=== PATIENT | male | born 1945 | race Caucasian/White ===

== ENCOUNTER 2020-04-07 15:40 | Inpatient (IN) | payer MEDICARE, OTHER ==
[~2020-04-07] VITALS: Ht 172.7 cm; Wt 102.1 kg
--- OUTSIDE RECORDS SUMMARY | 2020-04-07 15:43 | XMS REPORT | Clinical Summary ---
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 Active mv-mn/folic Take by 0 acid/lutein/jeq491 (JAVIER mouth. MULTIVITAMIN FOR MEN ORAL) Active KRILL UXY-LEEUS-4-DHA-EPA Take by 0 ORAL mouth. Active Problems Problem Noted Date Follow-up examination after orthopedic surgery 05/17 S/P right knee arthroscopy 05/17/2018 Complex tear of medial meniscus of right knee as curr ent injury 04/13/2018 Chronic pain of right knee 04/06/2018 Primary osteoarthritis of right knee 04/06/2018 Obesity (BMI 34.67) 04/06/2018 Family History Medical History Relation Name Comments Diabetes Father Heart disease Father Heart disease Mother Hypertension Mother Relation Name Status Comments Father Mother Social History Date Tobacco Use Types Packs/Day Years Used Never Smoker Smokeless Tobacco: Snuff Current User Drinks/Week oz/Week Comments Alcohol Use 21 Cans of beer 21.0 Yes Sex Assigned at Date Recorded Not on file Industry Job Start Date Occupation Not on file Not on file Not on file Travel End Travel History Travel Start No recent travel history available. 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
[2020-04-07] MEDS ORDERED: SODIUM CHLORIDE 0.9% 250ML 250 ML IV NR ×2 (16:15→20:45)
[2020-04-07 16:29] VITALS: BP 149/77
[2020-04-07 16:35] VITALS: BP 149/77
[2020-04-07 16:39] LABS: BASOPHILS % 0.3 % (0.0-1.0); EOSINOPHILS % 0.1 % (0.0-6.0); HEMATOCRIT 26.9 % (38.2-49.6); HEMOGLOBIN 7.4 g/dL (14.0-18.0); LYMPHOCYTES # (AUTO) 1.4 (1.0-3.2); LYMPHOCYTES % 16.3 % (18.0-39.1); MEAN CORPUSCULAR HEMOGLOBIN 19.5 pg (28-32); MEAN CORPUSCULAR HGB CONC 27.5 g/dL (31-35); MONOCYTES # (AUTO) 0.8 (0.2-0.8); MONOCYTES % 9.4 % (4.4-11.3); NEUTROPHILS # (AUTO) 6.3 (2.1-6.9); NEUTROPHILS % 73.4 % (38.7-80.0); PLATELET COUNT 279 x10e3/uL (140-360); RED BLOOD COUNT 3.79 x10e6/uL (4.3-5.7); RED CELL DISTRIBUTION WIDTH 20.4 % (11.7-14.4)
[2020-04-07 16:44] VITALS: BP 149/77
[2020-04-07] MEDS ORDERED: FLOMAX0.4 MG PO (16:49)
[2020-04-07] MEDS ORDERED: folic acid PO (16:49)
[2020-04-07] MEDS ORDERED: PRILOSEC OTC20 MG PO (16:49)
[2020-04-07] MEDS ORDERED: FERROUS SULFAT325 MG PO (16:49)
--- NOTE | 2020-04-07 16:49 | NUR ---
patient received direct admit ambulatory. all labs ordered and patient typed and screened. Dr Caceres and Dr Ro notified of admission. vitals stable with no distress. Dr Caceres will see patient this evening.
[2020-04-07 16:51] LABS: INR 0.96; PROTHROMBIN TIME 13.4 seconds (11.9-14.5)
[2020-04-07 17:00] LABS: ALBUMIN 3.8 g/dL (3.5-5.0); ALBUMIN/GLOBULIN RATIO 1.3 (0.8-2.0); CALCIUM 9.3 mg/dL (8.4-10.2); CREATININE, SERUM 1.37 mg/dL (0.72-1.25)
[2020-04-07] MEDS ORDERED: PANTOPRAZOLE 40 MG 10ML VIAL IV SCH (17:00)
--- NOTE | 2020-04-07 17:03 | Diagnostic Imaging Report ---
Examination: Single AP view of the chest. COMPARISON: None. INDICATION: GI bleed DISCUSSION: Lines/tubes: None. Lungs: The lungs are well inflated and clear. No pneumonia or pulmonary edema. Pleura: No pleural effusion or pneumothorax. Heart and mediastinum: Cardiomegaly Bones and soft tissues: No acute bony abnormalities. IMPRESSION: 1. No acute cardiopulmonary abnormalities. Signed by: Dr. Mark Fermin M.D. on 04/07/2020 5:00 PM
[2020-04-07] MEDS ORDERED: ACETAMINOPHEN 325 MG TAB PO PRN (19:30)
[2020-04-07] MEDS ORDERED: DOCUSATE SODIUM 100 MG CAP PO PRN (19:30)
[2020-04-07] MEDS ORDERED: ONDANSETRON HCL INJ 2MG/ML 2ML 2 MG/ML VIAL IV PRN (19:30)
[2020-04-07] MEDS ORDERED: HYDROCODONE/APAP 5MG-325MG TAB PO PRN (19:30)
[2020-04-07] MEDS ORDERED: HYDRALAZINE HCL 20 MG/ML VIAL IV PRN (19:30)
[2020-04-07 19:35] VITALS: BP 128/71
[2020-04-07 19:36] VITALS: BP 128/71
--- NOTE | 2020-04-07 20:05 | NUR ---
DR. CALDERÓN MADE AWARE OF THE CONSULTATION.
--- NOTE | 2020-04-07 20:42 | NUR ---
SEEN BY DR. LERMA NEW ORDER RECEIVED TO GIVE ONLY 1 UNIT OF PRBC AND GIVE LASIX 40 MG IV AFTER TRANSFUSION.
[2020-04-07] MEDS ORDERED: FUROSEMIDE INJ 10 MG/ML 4 ML VIAL IV PRN (20:45)
--- NOTE | 2020-04-07 20:57 | History and Physical ---
CHIEF COMPLAINT: Fatigue, weakness. HISTORY OF PRESENT ILLNESS: A 74-year-old male with past medical history of BPH and chronic alcohol usage, presents to the hospital as a direct admission from his PCP Dr. Jose Kemp with complaints of anemia and generalized weakness. The patient reports over the last several weeks he has been feeling very fatigued and weak, but did not go to the PCP. Of note, he has noticed that he has been very sleepy and tired. He denies any blood per rectum or any black tarry stool. He recently saw his primary care doctor, Dr. Kemp, in which about a week ago, had some basic labs performed, was found to be anemic at that time. He was found to have a low hemoglobin, was initiated on oral iron tablets. He also had a Hemoccult that he report it was positive for blood. He also had a cardiac Holter placed as well, but was found to be normal according to the patient. He had repeat labs done at the PCP's office and was still found to have a low hemoglobin in the 7s and was brought in as a direct admission for further management and care. GI has been consulted. The patient also reports black tarry stool, but he could attribute that to possible iron tablets after he initiated the iron tablets. He denies black tarry stool prior to any iron tablets. The patient was evaluated at bedside on the medical floor. He is currently doing well with no other issues at this time. He denies any history of heart disease or any chest pain during my evaluation. EKG shows right bundle branch block. I do not have any other EKG to compare. REVIEW OF SYSTEMS: Pertinent positives are questionable black tarry stool, fatigue, and weakness. The rest of 14-point review of systems have been reviewed with the patient and are negative. ALLERGIES: TETRACYCLINE. HOME MEDICATIONS: He takes: 1. Ferrous sulfate. 2. Omeprazole. 3. Folic acid. 4. Tamsulosin. PAST MEDICAL HISTORY: BPH and iron deficiency anemia. PAST SURGICAL HISTORY: He had cholecystectomy. He had bilateral hip replacement. PAST FAMILY HISTORY: Noncontributory. PAST SOCIAL HISTORY: He is a never was a smoker. He is an alcohol drinker, drinks about 3-4 cans of beer daily. No reports of any drugs. He is . PHYSICAL EXAMINATION: VITAL SIGNS: Temperature is 98.4, pulse is 60, respiratory rate is 18, blood pressure 114/71, and pulse ox 98% on room air. GENERAL: In no acute distress, alert and oriented x3. Cooperative on examination. HEENT: Head is normocephalic and atraumatic. Eyes, pupils are reactive to light bilaterally. Extraocular motions are intact bilaterally. PULMONARY: Clear to auscultation bilaterally. No wheezing, rales, or rhonchi. No crackles appreciated. CARDIOVASCULAR: Positive S1, S2. No murmurs, rubs, or gallops. ABDOMEN: Soft, nondistended, tender to palpation. Bowel sounds present. MUSCULOSKELETAL: Strength is 5/5 throughout. No evidence of any muscle deficits on examination. No weakness appreciated. SKIN: Intact. Warm to touch. Good cap refill. PSYCHIATRIC: Normal affect and mood. EXTREMITIES: No edema. Good range of motion throughout. LABORATORY DATA: White count 8.5, hemoglobin 7.4, hematocrit 26, MCV is 71, platelets of 279. Coagulation, PT 13, INR 0.96, and PTT 26. Chemistry, sodium 140, potassium 4, chloride 108, bicarb 19, anion gap of 17, BUN 14, creatinine 1.37, glucose is 91, and calcium 9.3. Total bilirubin was 0.4, AST 14, ALT 16, alkaline phosphatase 81, total protein 6.9, and albumin 3.8. Serology, coronavirus PCR is pending. MICROBIOLOGY: None. IMAGING DATA: Chest x-ray shows no acute cardiopulmonary abnormalities. IMPRESSION: 1. Generalized weakness and fatigue secondary to iron-deficiency anemia - the patient's hemoglobin was found to be very low at 7.4, there was some concern for black tarry stool, which could be attributed to iron tablets. At this time, we will put on IV Protonix, get a GI consultation, transfuse 1 unit packed RBCs, and get iron studies including ferritin levels. 2. Right bundle-branch block - the patient denies any chest pain, but his EKG is consistent with a right bundle-branch block. I do not have an EKG to compare. I would like to get cardiac clearance before any kind of procedure. Trend troponins. Cardiology consulted. 3. Acute kidney injury - likely secondary to anemia, await blood transfusion. Repeat labs in the morning. 4. History of BPH - continue with tamsulosin. 5. Nutrition - clear liquid diet. 6. SCDs for DVT prophylaxis. CONSULTANTS: GI and Cardiology. MD JUANIS Martin/MELODY /[id number]
[2020-04-07] MEDS ORDERED: BISACODYL 5 MG TAB EC PO SCH ×3 (22:00→23:00)
[2020-04-07 22:14] LABS: PLATELET MORPHOLOGY COMMENT FEW GIANT
[2020-04-07 22:15] LABS: ANISOCYTOSIS SLIGHT; HYPOCHROMASIA MARKED; PLATELET ESTIMATE ADEQUATE; POIKILOCYTOSIS SLIGHT; RBC MORPHOLOGY COMMENT ABNORMAL
[2020-04-07 22:19] LABS: FERRITIN 9.04 ng/mL (21.81-274.66)
[2020-04-07 23:18] VITALS: BP 117/63
[2020-04-08] VITALS (8 sets, daily range): BP systolic 100–123; BP diastolic 67–85
[2020-04-08] MEDS ORDERED: FUROSEMIDE INJ 10 MG/ML 4 ML VIAL IV ONE (02:45)
[2020-04-08] MEDS ORDERED: CITRATE OF MAGNESIA 300ML BOTTLE PO SCH ×2 (05:00→07:00)
[2020-04-08 05:44] LABS: BASOPHILS % 0.3 % (0.0-1.0); EOSINOPHILS # (AUTO) 0.1 (0.0-0.4); EOSINOPHILS % 0.9 % (0.0-6.0); HEMATOCRIT 32.5 % (38.2-49.6); HEMOGLOBIN 9.1 g/dL (14.0-18.0); LYMPHOCYTES # (AUTO) 1.7 (1.0-3.2); LYMPHOCYTES % 16.6 % (18.0-39.1); MEAN CORPUSCULAR HEMOGLOBIN 20.7 pg (28-32); MEAN CORPUSCULAR VOLUME 73.9 fL (81-99); MONOCYTES # (AUTO) 1.3 (0.2-0.8); MONOCYTES % 12.2 % (4.4-11.3); NEUTROPHILS # (AUTO) 7.2 (2.1-6.9); NEUTROPHILS % 69.1 % (38.7-80.0); PLATELET COUNT 330 x10e3/uL (140-360); RED CELL DISTRIBUTION WIDTH 24.5 % (11.7-14.4)
[2020-04-08 06:09] LABS: ANION GAP 17.7 mmol/L (8-16); CALCIUM 9.8 mg/dL (8.4-10.2); CREATININE, SERUM 1.62 mg/dL (0.72-1.25); POTASSIUM 4.7 mmol/L (3.5-5.1)
[2020-04-08 06:49] LABS: ANISOCYTOSIS MODERATE; HYPOCHROMASIA MODERATE; MICROCYTOSIS SLIGHT; POLYCHROMASIA FEW
[2020-04-08 06:50] LABS: PLATELET ESTIMATE ADEQUATE; PLATELET MORPHOLOGY COMMENT NORMAL; POIKILOCYTOSIS SLIGHT; RBC MORPHOLOGY COMMENT ABNORMAL
[2020-04-08 06:51] LABS: FERRITIN 8.54 ng/mL (21.81-274.66)
[2020-04-08] MEDS ORDERED: IRON SUCROSE 100 MG in SODIUM CHLORIDE 0.9% 100 ML 100 ML IV SCH (08:00)
[2020-04-08] MEDS: TAMSULOSIN HCL 0.4 MG CAP PO SCH (08:33)
[2020-04-08] MEDS: PANTOPRAZOLE 40 MG 10ML VIAL IV SCH ×2 (08:33→20:24)
--- NOTE | 2020-04-08 08:44 | NUR ---
PT STOOL YELLOW/GREEN TINGED CLEAR WITH SMALL AMOUNTS OF SEDIMENT, PT EDUCATED TO NOTIFY NURSE WITH EACH BM, PT VERBALIZED UNDERSTANDING, CALL LIGHT WITHIN REACH
--- NOTE | 2020-04-08 14:11 | NUR ---
PT WHEELED OFF UNIT VIA WC FOR PROCEDURE, NO CHANGE IN CONDTION
--- NOTE | 2020-04-08 16:06 | Consultation ---
DATE OF CONSULTATION: 04/08/2020 REASON FOR CONSULTATION: Preop clearance. CHIEF COMPLAINT: GI bleed. Abdominal pain. HISTORY OF PRESENT ILLNESS: This is a 74-year-old male with history of hypertension, BPH, and reflux disease. The patient presents to [facility] ER after seeing his primary care physician, was noted to be anemic in the 7 range and was admitted directly for further evaluation. The patient is to have a scope today. Cardiac clearance was requested. The patient is seen in room in no acute distress. Reports for the past several months has been feeling weak, fatigued, with some shortness of breath. He saw his PCP and was noted to be anemic, started on iron supplements. Also, the patient noted with black tarry stools for some time now. The patient denies any chest pains or lower extremity edema. PAST MEDICAL HISTORY: Hypertension, BPH, and reflux disease. PAST SURGICAL HISTORY: Bilateral hip replacement, cholecystectomy. FAMILY HISTORY: Mother and father with "heart problems." SOCIAL HISTORY: He is and retired. He drinks about 3-4 beers per day. He denies any tobacco use. HOME MEDICATIONS: Iron 325 daily, omeprazole 40 mg daily, and Flomax 0.4 mg daily. ALLERGIES: TETRACYCLINE. REVIEW OF SYSTEMS: GENERAL: Denies any weight changes. Positive for fatigue and weakness. Denies any fevers, chills, or night sweats. SKIN: No rashes, bruises. HEENT: Denies any nausea, vomiting, any blurred vision, double vision, epistaxis, sore throat, or swollen neck. CARDIAC: Denies any chest pain. Does report dyspnea on exertion. Denies any orthopnea, PND, or lower extremity edema. RESPIRATORY: Positive for shortness of breath with activities. Denies any wheezing, coughing, or hemoptysis. GI: Reports good appetite. Denies any nausea or vomiting. However, does report black tarry stools. URINARY: Denies any frequency, urgency, dysuria, or hematuria. VASCULAR: Denies any lower extremity edema or claudication. MUSCULOSKELETAL: Positive for generalized joint pains, back pains. NEUROLOGIC: Denies any tingling, weakness, paralysis, fainting, or seizures. HEMATOLOGY: Denies any bruising. ENDOCRINE: Denies any heat or cold intolerance, polyuria, polydipsia, or polyphagia. PHYSICAL EXAMINATION: VITAL SIGNS: Height 68 inches, weight 225 pounds. Temperature 97.0, pulse 78, respiratory rate 18, blood pressure 112/73, and pulse ox 99% on room air. GENERAL: Appears stated age, reliable informant. No acute distress. SKIN: No rashes or bruises noted. HEENT: Normocephalic. Pupils are equal, reactive. Extraocular movements are intact. Trachea midline. No JVD. No carotid bruits noted. HEART: Regular rate and rhythm. No murmurs or clicks noted. PMI about 4th and 5th intercostal space. LUNGS: Bilateral breath sounds. Clear to auscultation. Good airway entry and exit. ABDOMEN: Soft, nontender, and nondistended. No organomegaly noted. MUSCULOSKELETAL: Good muscle strength throughout. VASCULAR: +2 radial pulses bilaterally, +1 DP, PT pulses bilaterally. NEUROLOGIC: Cranial nerves II through XII seem intact. LABORATORY DATA: White count 8, hemoglobin 7, hematocrit 26, and platelets 279. Sodium 141, potassium 4.7, chloride 107, BUN 12, and creatinine 1.6. Iron 18, TIBC 612. Troponin 0.02, next 0.01. PT 13, PTT 26. Chest x-ray showing no acute abnormalities. EKG showing incomplete right bundle branch block. ASSESSMENT: 1. Gastrointestinal bleed. 2. Iron deficiency anemia. 3. Alcohol use. PLAN: The patient presents to [facility] with GI bleed and notable anemia, status post one PRBC. Cardiac clearance requested. We will do echo to evaluate heart function structure. The patient is cleared from cardiac standpoint, given as needed. He does have GI bleed and he is anemic and symptomatic. However, risks are not zero. The patient is understanding and accepting the risks. We will continue to monitor the patient. Thank you very much for this consult. Dictated by Felipe Gore, MARC Ke Davis MD DC/ALICIAL /[id number]
--- NOTE | 2020-04-08 16:30 | NUR ---
PT BACK IN ROOM VIA TRINITYER, AA&OX3 , RA, , DENIES PAIN, CALL LIGHT WITHIN REACH
--- NOTE | 2020-04-08 16:36 | Progress Note ---
DATE: 04/08/2020 Medicine Progress Note SUBJECTIVE: The patient is scheduled for colonoscopy and EGD later today. He is getting a bowel prep. PHYSICAL EXAMINATION: VITAL SIGNS: Temperature is 97.8, pulse 83, respiratory rate is 20, blood pressure 123/73, pulse ox 100% on room air. GENERAL: Not in acute distress, alert and oriented x3. Cooperative on examination. HEENT: Head is normocephalic and atraumatic. Eyes; pupils are reactive to light bilaterally. NECK: Supple. Good range of motion. PULMONARY: Clear to auscultation bilaterally. No wheezing, rales, or rhonchi. No crackles appreciated. CARDIOVASCULAR: Positive S1, S2. No murmurs, rubs, or gallops appreciated. ABDOMEN: Soft, nondistended, nontender to palpation. Bowel sounds present. MUSCULOSKELETAL: Strength is 5/5 throughout. SKIN: Intact. Warm to touch. Good cap refill. PSYCHIATRIC: Normal affect and mood. EXTREMITIES: No edema. Good range of motion throughout. LABORATORY DATA: Labs show white count 10.3, hemoglobin 9.1, hematocrit 32, platelets of 330. Chemistry; sodium 141, potassium 4.7, chloride 107, bicarb 29, anion gap of 17, BUN is 12, creatinine is 1.62, calcium is 9.8, iron saturation 5%. Troponin all negative. Loo virus is pending. IMAGING STUDIES: Chest x-ray was negative. IMPRESSION: 1. Generalized weakness and fatigue secondary to iron deficiency anemia-hemoglobin much improved after 1 unit packed RBC given. He is scheduled for EGD, colonoscopy later today. He will need iron infusion as an outpatient. Continue with Protonix. GI is following. 2. Right bundle branch block as Cardiology evaluated the patient, 2D echo shows an EF of 60%. He has been cleared for procedure later today. Cardiac enzymes were negative. Cardiology following. 3. Acute kidney injury secondary to anemia-much improved, monitor closely. Get a.m. labs. 4. History of BPH-continue with tamsulosin. 5. Nutrition-clear liquid diet. 6. Sequential compression devices for deep vein thrombosis prophylaxis. CONSULTANTS: GI and Cardiology. Casi Caceres MD JSD/MODL /[id number]
[2020-04-08] MEDS ORDERED: FENTANYL CITRATE/PF 100MCG/2 ML INJ ONE (18:15)
[2020-04-08] MEDS ORDERED: PROPOFOL IV EMULSION 10 MG/ML 20 ML VIAL ONE (19:51)
[2020-04-08] MEDS ORDERED: GLUCAGON FOR INJ 1 MG VIAL ONE (19:51)
[2020-04-08] MEDS: IRON SUCROSE 100 MG in SODIUM CHLORIDE 0.9% 100 ML 100 ML IV SCH (20:04)
[2020-04-08] MEDS ORDERED: SODIUM CHLORIDE 0.9% 250ML 250 ML ONE (20:10)
--- NOTE | 2020-04-08 20:27 | Operative Report ---
DATE OF PROCEDURE: 04/08/2020 SURGEON: Nic Ro MD ADDITIONAL REFERRING PHYSICIAN: Dr. Jose Kemp PROCEDURE: Colonoscopy with biopsies. INDICATIONS FOR COLONOSCOPY: Iron-deficiency anemia. MEDICATIONS: The patient was done under MAC, please see anesthesiologist's note. PROCEDURE IN DETAIL: With the patient in left lateral decubitus position, flexible fiberoptic Olympus colonoscope was inserted into the rectum with ease and advanced all the way to the cecum. There was a 3/4 circumferential mass noted in the cecum and biopsies were obtained. Also, the proximal ascending colon was tattooed. The scope was withdrawn slowly and mucosa overlying the ascending and transverse grossly appeared to be within normal limits. Some diverticular disease was noted in the descending and sigmoid colon. The rectum appeared to be within normal limits. The scope was then retroflexed into the distal rectum. Small internal hemorrhoids were noted, none of which was actively bleeding. The scope was then straightened out, it was subsequently withdrawn. The patient tolerated the procedure well. IMPRESSION: 1. 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 2. Diverticulosis. 3. Internal hemorrhoids, none actively bleeding. PLAN: Follow up histology. The patient will need a CT scan of the abdomen and pelvis. General surgical consultation. Nic Ro MD [facility] [place] [place] /[id number] cc: Casi Caceres MD
--- NOTE | 2020-04-08 20:30 | NUR ---
PATIENT AGREED TO TURN ON BED ALARM AND USE CALL LIGHT WHEN ASSISTANCE IS NEEDED.
--- NOTE | 2020-04-08 22:50 | NUR ---
Dr. Ro spoke to patient regarding Colonoscopy result and CT Scan order for tomorrow.
--- NOTE | 2020-04-08 22:50 | NUR ---
Patient is confused of time. Dr. Kathie Ro was aware. No new orders.
--- NOTE | 2020-04-08 23:30 | NUR ---
PATIENT EXPRESSED CONCERNED REGARDING COLONOSCOPY RESULT THAT DR. Kathie SALDAÑA EXPLAINED TO HIM.
[2020-04-09] VITALS (7 sets, daily range): BP systolic 103–129; BP diastolic 61–75
--- NOTE | 2020-04-09 01:08 | NUR ---
Dr. Ro ordered to do ct abdomen and pelvis with oral contrast only. Radiology department notified.
--- NOTE | 2020-04-09 02:30 | NUR ---
Patient still confuse of time. Got out of the bed with out using the call light. Assisted to the bathroom and back to bed by RN. States he missed his family and thinks if someone is waiting for him outside. 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 Vital signs checked. BP 111/63 MMHG, T 98.2, HI 91, RR 18 o2 saturation 96 Blood sugar 127 mg/dl. Patient asked RN multiple times if he is dying because vital signs has been checked several times.
--- NOTE | 2020-04-09 02:46 | NUR ---
BED ALARM IS ON, CALL LIGHT WITHIN REACHED AND ENCOURAGED TO USE.
--- NOTE | 2020-04-09 05:30 | NUR ---
PATIENT IS ALERT AND CALM AT THIS TIME. ORIENTED TO TIME, PLACE AND PERSON.
[2020-04-09 05:37] LABS: BASOPHILS % 0.2 % (0.0-1.0); EOSINOPHILS % 0.1 % (0.0-6.0); HEMATOCRIT 27.6 % (38.2-49.6); LYMPHOCYTES # (AUTO) 1.7 (1.0-3.2); LYMPHOCYTES % 10.4 % (18.0-39.1); MEAN CORPUSCULAR HEMOGLOBIN 21.1 pg (28-32); MEAN CORPUSCULAR VOLUME 72.8 fL (81-99); MONOCYTES # (AUTO) 1.4 (0.2-0.8); MONOCYTES % 8.4 % (4.4-11.3); NEUTROPHILS # (AUTO) 13.3 (2.1-6.9); NEUTROPHILS % 80.3 % (38.7-80.0); PLATELET COUNT 280 x10e3/uL (140-360); RED BLOOD COUNT 3.79 x10e6/uL (4.3-5.7); RED CELL DISTRIBUTION WIDTH 24.9 % (11.7-14.4)
[2020-04-09 05:55] LABS: ANION GAP 14.1 mmol/L (8-16); CALCIUM 8.5 mg/dL (8.4-10.2); CREATININE, SERUM 1.41 mg/dL (0.72-1.25); POTASSIUM 4.1 mmol/L (3.5-5.1)
--- NOTE | 2020-04-09 06:20 | NUR ---
CALLED DR. LERMA TO NOTIFY REGARDING PATIENT'S PERIODS OF CONFUSION AND ELEVATED WBC. NO ANSWER.
[2020-04-09] MEDS: PANTOPRAZOLE 40 MG 10ML VIAL IV SCH ×2 (07:50→21:16)
[2020-04-09] MEDS: TAMSULOSIN HCL 0.4 MG CAP PO SCH (07:50)
[2020-04-09] MEDS ORDERED: DIATRIZOATE MEGL/DIATRIZOA SOD 30 ML BTL PO ONE (07:51)
[2020-04-09 11:16] LABS: ANISOCYTOSIS MODERATE; HYPOCHROMASIA SLIGHT; PLATELET ESTIMATE ADEQUATE
[2020-04-09 11:17] LABS: MICROCYTOSIS MODERATE; OVALOCYTES FEW; PLATELET MORPHOLOGY COMMENT NORMAL; POLYCHROMASIA FEW
[2020-04-09 11:18] LABS: RBC MORPHOLOGY COMMENT ABNORMAL
--- NOTE | 2020-04-09 14:07 | Diagnostic Imaging Report ---
EXAM: CT Abdomen and Pelvis WITHOUT intravenous contrast INDICATION: GI bleed, right lower quadrant abdominal pain COMPARISON: Chest radiograph of 04/07/2020 TECHNIQUE: Abdomen and pelvis were scanned utilizing a multidetector helical scanner from the lung base to the pubic symphysis without administration of IV contrast. Coronal and sagittal reformations were obtained. IV CONTRAST: None ORAL CONTRAST: Water COMPLICATIONS: None RADIATION DOSE: Total DLP: 811 mGy*cm Dose modulation, iterative reconstruction, and/or weight based adjustment of the mA/kV was utilized to reduce the radiation dose to as low as reasonably achievable. FINDINGS: LOWER THORAX: Multiple right lower lobe and left lower lobe solid nodules measure up to 7 mm. Multifocal groundglass opacities in the left lower lobe. Moderate sliding hiatal hernia. HEPATOBILIARY: No focal liver lesion. Status post cholecystectomy. SPLEEN: No splenomegaly. PANCREAS: No focal masses or ductal dilatation. ADRENALS: No adrenal nodules. KIDNEYS/URETERS: No hydronephrosis, stones, or solid mass lesions. PELVIC ORGANS/BLADDER: Obscured by streak artifact associated with right and left total hip replacement. PERITONEUM / RETROPERITONEUM: No free air or fluid. LYMPH NODES: No lymphadenopathy. VESSELS: Scattered atherosclerotic calcifications of the nonaneurysmal abdominal aorta and major branches. GI TRACT: Endoluminal soft tissue prominence at the cecum. Otherwise, no abnormal bowel thickening. No bowel obstruction. Diverticulosis without CT evidence of diverticulitis. BONES AND SOFT TISSUES: No acute osseous injury. No suspicious lytic or blastic lesions. IMPRESSION: Cecal soft tissue prominence may correspond with provided history of cecal mass. Endoscopic evaluation and tissue sampling, if not reperformed, is recommended. Right and left lower lobe solid lung nodules measure up to [address] is recommended for further evaluation. Left lower lobe scattered groundglass opacities, most likely infectious or inflammatory. Signed by: Donald Walden MD on 04/09/2020 2:04 PM
--- NOTE | 2020-04-09 15:46 | Progress Note ---
DATE: 04/09/2020 Medicine Progress Note SUBJECTIVE: The patient underwent colonoscopy yesterday, found to have a cecal mass seen on endoscopy report. I did consult with Dr. Fowler for General Surgery and Dr. Serrano for Oncology. He is otherwise, doing well. He is stable. I did tell him the news of the cecal mass. PHYSICAL EXAMINATION: VITAL SIGNS: Temperature is 97.6, pulse is 90, respiratory rate is 20, blood pressure 103/61, and pulse ox 99% on room air. GENERAL: Not in acute distress. Alert and oriented x3. Cooperative on examination. HEENT: Head is normocephalic and atraumatic. Eyes; pupils are reactive to light bilaterally. Extraocular movements intact bilaterally. Throat; no evidence of erythema or exudates in the posterior pharynx. Has poor dentition. NECK: Supple. Good range of motion. PULMONARY: Clear to auscultation bilaterally. No wheezing, rales, or rhonchi. No crackles appreciated. CARDIOVASCULAR: Positive S1 and S2. No murmurs, rubs, or gallops appreciated. ABDOMEN: Soft, nondistended, nontender to palpation. Bowel sounds present. MUSCULOSKELETAL: Strength is 5/5 throughout. No evidence of any muscle deficits on examination. No weakness appreciated. NEUROLOGIC: Cranial nerves II through XII grossly intact. No evidence of any neurological deficits on exam. SKIN: Intact. Warm to touch. Good cap refill. PSYCHIATRIC: Normal affect and mood. EXTREMITIES: No edema. Good range of motion throughout. LABORATORY DATA: Labs show white count was 16.5, I am not sure what that causes, he is doing well, afebrile. Hemoglobin 8, hematocrit is 27.6, platelets of 280. Chemistry; sodium 137, potassium 4.1, chloride 109, bicarb 18, anion gap of 14, BUN 17, creatinine 1.41, calcium is 8.5. IMAGING STUDIES: CT abdomen and pelvis shows a cecal soft tissue prominence, may correspond with provided history of cecal mass. Right lower and left lower lobe solid lung nodules measuring 7 mm, chest CT is recommended for further evaluation. Left lower lobe scattered ground-glass opacities, most likely infectious or inflammatory. IMPRESSION: 1. Generalized weakness and fatigue with underlying iron deficiency anemia, now with a cecal mass-General Surgery and Oncology has been consulted. Hemoglobin is stable. EGD report noted to show a cecal mass. GI is following. 2. Right bundle branch block-Cardiology evaluated. A 2D echo shows EF of 60%, no further cardiac workup needed. 3. Acute kidney injury, secondary to anemia-improved, resolved. 4. Pulmonary nodules-we will get dedicated CT chest with IV contrast to rule out any kind of metastasis. 5. History of benign prostatic hyperplasia-continue with tamsulosin. 6. Nutrition-all regular diet. 7. Encourage ambulation for deep venous thrombosis prophylaxis. CONSULTANTS: GI, Cardiology, Oncology, and General Surgery. PLAN: I discussed the plan of care with the patient, the patient's at bedside with nursing staff present, and discussed overall findings and the consultants they all be coming to see him for further management and care, and he verbalized understanding. MD JUANIS Martin/MODLisbet /[id number]
[2020-04-09] MEDS: SODIUM CHLORIDE 0.9% 1000ML 1,000 ML IV SCH (16:13)
[2020-04-09] MEDS: CEFTRIAXONE SOD 1 GM/NS 50 ML 50 ML IV SCH (16:20)
--- NOTE | 2020-04-09 17:36 | Diagnostic Imaging Report ---
EXAMINATION: CT scan of the chest with contrast. TECHNIQUE: Helical CT images of the chest were performed from the lung apices to the level of the adrenal glands after the intravenous administration of 100 cc of Omnipaque 300. Coronal and sagittal reformatted images were obtained. Dose modulation, iterative reconstruction, and/or weight based adjustment of the mA/kV was utilized to reduce the radiation dose to as low as reasonably achievable. COMPARISON: None. CLINICAL HISTORY:GI bleed, pulmonary nodules DISCUSSION: LINES/TUBES: None. LUNGS AND AIRWAYS: Scattered pulmonary nodules within the lungs. The largest is in the right lower lobe measuring 7 mm and shows partial peripheral calcification. The largest nodule in the left lower lobe measures 7 mm also shows some peripheral calcification. Multiple additional smaller nodules are scattered within the chest. Scattered groundglass opacities most prominent within the left lung involving the upper and lower lobes. PLEURA: No pneumothorax or pleural effusions. HEART AND MEDIASTINUM: The thyroid gland is normal. A hiatal hernia present. Coronary artery calcifications. LYMPH NODES: There is no mediastinal, hilar or axillary lymphadenopathy. ABDOMEN: Cholecystectomy. BONES AND SOFT TISSUES: No acute bony abnormalities. IMPRESSION: Scattered pulmonary nodules within the lungs, the largest measuring 7 mm right lower and left lower lobe. A follow-up scan in 6 months suggested. Scattered groundglass opacities within the left upper and lower lobe secondary to infectious or inflammatory process. Signed by: Dr. Mark Fermin M.D. on 04/09/2020 5:32 PM
[2020-04-09] MEDS ORDERED: MAGNESIUM HYDROXIDE 30 ML UDC PO ONE (19:45)
[2020-04-09] MEDS: IRON SUCROSE 100 MG in SODIUM CHLORIDE 0.9% 100 ML 100 ML IV SCH (20:00)
[2020-04-09] MEDS ORDERED: IOPAMIDOL 370 MG/ML 200 ML INFUS..BTL INJ ONE (21:10)
[2020-04-09] MEDS ORDERED: SODIUM CHLORIDE 0.9% 50ML 50 ML ONE (21:10)
[2020-04-09] MEDS: ERYTHROMYCIN 500 MG TAB PO SCH ×2 (21:16→22:51)
[2020-04-09] MEDS: NEOMYCIN SULFATE 500 MG TAB PO SCH ×2 (21:16→22:51)
[2020-04-10] VITALS (9 sets, daily range): BP systolic 105–141; BP diastolic 57–83
[2020-04-10 05:29] LABS: BASOPHILS % 0.5 % (0.0-1.0); EOSINOPHILS # (AUTO) 0.1 (0.0-0.4); EOSINOPHILS % 1.3 % (0.0-6.0); HEMATOCRIT 27.8 % (38.2-49.6); HEMOGLOBIN 8.1 g/dL (14.0-18.0); LYMPHOCYTES # (AUTO) 1.6 (1.0-3.2); LYMPHOCYTES % 20.5 % (18.0-39.1); MEAN CORPUSCULAR HEMOGLOBIN 21.7 pg (28-32); MEAN CORPUSCULAR HGB CONC 29.1 g/dL (31-35); MEAN CORPUSCULAR VOLUME 74.5 fL (81-99); MONOCYTES % 13.1 % (4.4-11.3); NEUTROPHILS % 64.2 % (38.7-80.0); PLATELET COUNT 257 x10e3/uL (140-360); RED BLOOD COUNT 3.73 x10e6/uL (4.3-5.7); RED CELL DISTRIBUTION WIDTH 25.5 % (11.7-14.4)
[2020-04-10 05:45] LABS: ANION GAP 14.9 mmol/L (8-16); CALCIUM 8.5 mg/dL (8.4-10.2); CREATININE, SERUM 1.31 mg/dL (0.72-1.25); POTASSIUM 3.9 mmol/L (3.5-5.1)
[2020-04-10] MEDS: SODIUM CHLORIDE 0.9% 1000ML 1,000 ML IV SCH (05:54)
[2020-04-10 08:20] LABS: ANISOCYTOSIS MODERATE; HYPOCHROMASIA MODERATE; MICROCYTOSIS SLIGHT
[2020-04-10 08:21] LABS: OVALOCYTES FEW; PLATELET ESTIMATE ADEQUATE; PLATELET MORPHOLOGY COMMENT NORMAL; POLYCHROMASIA FEW; RBC MORPHOLOGY COMMENT ABNORMAL
[2020-04-10] MEDS: PANTOPRAZOLE 40 MG 10ML VIAL IV SCH (08:53)
[2020-04-10] MEDS: TAMSULOSIN HCL 0.4 MG CAP PO SCH (08:54)
--- NOTE | 2020-04-10 11:00 | NUR ---
Pt transferred to OR at this time. Pt is is aox3 and able to verbalize needs. 0 s/s of acute distress noted at time of transfer. Family at the bedside and is aware of transfer.
[2020-04-10] MEDS ORDERED: SUGAMMADEX SODIUM 200 MG/2 ML VIAL IV ONE (13:53)
[2020-04-10] MEDS ORDERED: SODIUM CHLORIDE 0.9% 1000ML 1,000 ML IV SCH (14:00)
[2020-04-10] MEDS ORDERED: ONDANSETRON HCL INJ 2MG/ML 2ML 2 MG/ML VIAL IV PRN (14:00)
[2020-04-10] MEDS ORDERED: MEPERIDINE HCL INJ 25 MG/ML VIAL ONE (14:11)
[2020-04-10] MEDS: HYDROMORPHONE 1MG/1ML INJ IV PRN ×2 (14:30→21:40)
[2020-04-10] MEDS ORDERED: ACETAMINOPHEN 1000 MG/100 ML IV PRN (15:00)
--- NOTE | 2020-04-10 15:00 | NUR ---
Pt returned from OR at this time. Pt is very lethargic still but does wake easily with verbal stimuli. Pt has ngtube to right nare and connected to low continuous suction with greenish drainage noted in tube. Pt is NPO. Surgical dressing to midabdomen is covered with pressure tape and dry and intact. Abdominal binder is in place. Pt is on fliuds.
[2020-04-10] MEDS: SODIUM CHLORIDE 0.9% 250ML IRRIG IR SCH ×3 (15:44→22:00)
[2020-04-10] MEDS: CEFTRIAXONE SOD 1 GM/NS 50 ML 50 ML IV SCH (15:46)
[2020-04-10] MEDS: DEXTROSE 5%/0.9% SOD CHL 1,000 ML IV SCH (15:47)
[2020-04-10] MEDS ORDERED: ROCURONIUM BROMIDE 10 MG/ML 5ML VIAL IV ONE (19:47)
[2020-04-10] MEDS ORDERED: CEFTRIAXONE SOD 1 GM VIAL ONE (19:47)
[2020-04-10] MEDS ORDERED: LIDOCAINE HCL 2% LOCAL INJ 5 ML SDV VIAL INJ ONE (19:47)
[2020-04-10] MEDS ORDERED: SEVOFLURANE INHAL SOLN 250 ML PEN BTL ONE (19:47)
[2020-04-10] MEDS ORDERED: ONDANSETRON HCL INJ 2MG/ML 2ML 2 MG/ML VIAL ONE (19:47)
[2020-04-10] MEDS ORDERED: PROPOFOL IV EMULSION 10 MG/ML 20 ML VIAL ONE (19:47)
[2020-04-10] MEDS ORDERED: DEXAMETHASONE SOD PHOS INJ 4 MG/ML VIAL ONE (19:47)
--- NOTE | 2020-04-10 21:07 | Operative Report ---
DATE OF PROCEDURE: 04/10/2020 SURGEON: Linus Fowler MD PREOPERATIVE DIAGNOSIS: Carcinoma of the cecum. 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 OPERATIONS PERFORMED: 1. Exploratory laparotomy. 2. Right hemicolectomy. 3. Omentectomy. 4. Resection of multiple intraperitoneal and pelvic metastases. GERMINATION WORKER: Sophia RAMOS ANESTHESIA: General. COMPLICATIONS: None. ESTIMATED BLOOD LOSS: 100 mL. DESCRIPTION OF PROCEDURE: With the patient lying in bed in the supine position under general endotracheal anesthesia, the abdomen was prepped with Betadine solution and draped in the usual manner. A midline incision was made, this was carried down through the subcutaneous tissue and through the midline fascia. The peritoneum was opened and the abdomen was entered. Upon entering the abdominal cavity, exploration revealed that there was tumor of the cecum with a tattoo that had been done via colonoscopy. The tumor was stuck to the lateral wall of the right lower quadrant. There was also some studding of peritoneal implants in the pelvis and along the terminal ileum and also in the omentum. There were a couple of tiny little nodules in the liver that were indeterminate. We decided to go ahead and proceed with a right hemicolectomy and to resect as many of the implants as was feasible. The right colon was then mobilized off the lateral gutter and brought medially. The hepatic ligament was brought down with EnSeal device. The duodenum and right ureter were then identified and preserved. The studding in the right lower quadrant was then resected and sent as a separate specimen. Similarly, some of the studding along the terminal ileum and in the cul-de-sac were resected and sent as separate specimens. The omentum was then mobilized off the distal transverse colon and the lesser sac was then entered and the stomach and transverse colon were with the EnSeal device. The mid transverse colon was then divided with an application of the TARYN-75 stapler, and similarly the terminal ileum including the area that contained the metastatic spread was divided with an application of the TARYN-75 stapler. The mesentery was then slowly and carefully taken down with the EnSeal device with the larger vessels ligated with 0-silk and the specimen including the right colon and the omentum and block, was resected and sent for pathological examination. After this was done, the anastomosis was then performed bringing the terminal ileum to the transverse colon and approximated with another application of TARYN-75 stapler. The remaining opening was closed with a TA-60 stapler. Gloves and instruments were then changed. The anastomosis was then reinforced with 3-0 silk and the mesenteric rent was closed with a running suture of 2-0 Vicryl. The whole abdomen was then thoroughly irrigated and perfect hemostasis was ascertained. All the excess fluid was aspirated and the abdomen was then closed in layers. The peritoneum was closed with a running suture of #1 Vicryl, the midline fascia was closed with a running suture of #1 Vicryl, and the skin was closed with clips. A dressing was applied. Sponge, lap, and needle count was correct. The patient tolerated the procedure well and returned to the recovery room in stable condition. MD LUIS Jefferson/MELODY /[id number]
[2020-04-10] MEDS ORDERED: FENTANYL CITRATE/PF 100MCG/2 ML INJ ONE (21:21)
[2020-04-10] MEDS: IRON SUCROSE 100 MG in SODIUM CHLORIDE 0.9% 100 ML 100 ML IV SCH (21:28)
[2020-04-11] VITALS (7 sets, daily range): BP systolic 129–146; BP diastolic 71–98
--- NOTE | 2020-04-11 01:17 | Progress Note ---
DATE: Medicine Progress Note SUBJECTIVE: The patient agreed to surgery. The patient was seen postoperatively. The patient underwent status post exploratory laparotomy with right colectomy and omentectomy performed by General Surgery. The patient was doing well postoperatively. PHYSICAL EXAMINATION: VITAL SIGNS: Temperature is 98.6, pulse 87, respiratory rate is 18, blood pressure was 133/80, pulse ox 97% on room air. He has an NG tube. GENERAL: Not in acute distress, though. Oriented x3. Cooperative on examination. HEENT: Head is normocephalic and atraumatic. Eyes; pupils are reactive to light bilaterally. Extraocular movements intact bilaterally. NECK: Supple. Good range of motion. CARDIOVASCULAR: Positive S1, S2. No murmurs, rubs, or gallops appreciated. ABDOMEN: Soft, nondistended, and nontender to palpation. Bowel sounds present. PULMONARY: Clear to auscultation bilaterally. No wheezing, rales, or rhonchi. No crackles appreciated. MUSCULOSKELETAL: Strength is 5/5 throughout. No evidence of any muscle deficits on examination. No weakness appreciated. NEUROLOGIC: Cranial nerves II through XII grossly intact. No evidence of any neurological deficits on exam. SKIN: Intact. Warm to touch. Good cap refill. PSYCHIATRIC: Normal affect and mood. EXTREMITIES: No edema. Good range of motion throughout. LABORATORY DATA: Labs show white count 7.7, hemoglobin 8.1, hematocrit 27, MCV is 74, platelets of 257. Chemistry; sodium 139, potassium 3.9, chloride 109, bicarb 19, anion gap of 14, BUN is 14, creatinine is 1.31, glucose is 96, and calcium is 8.5. IMAGING STUDIES: CT chest IV contrast shows a scattered pulmonary nodules within the lungs measuring largest 7 mm in the right and in the lower left lobe. Scattered ground-glass opacities within the left upper and lower lobes secondary to infectious or inflammatory process. IMPRESSION: 1. Generalized weakness and fatigue secondary to iron deficiency anemia as well as possible underlying colorectal cancer, status post laparoscopic right hemicolectomy performed by General Surgery-continue with postop care, NG tube, n.p.o., IV fluids, and pain control. 2. Right bundle branch block-Cardiology seen and evaluated. No further workup needed. 3. Acute kidney injury secondary to anemia-improved. 4. Pulmonary nodules-seen on CT chest with IV contrast, needs outpatient followup, will benefit from a PET scan for his Oncology workup. 5. History of benign prostatic hyperplasia-continue with tamsulosin. 6. Nutrition-n.p.o. 7. We will put on Lovenox for deep venous thrombosis prophylaxis, likely tomorrow since he has surgery today. CONSULTANTS: GI, Cardiology, Oncology, and General Surgery. PLAN: At this time, the patient is doing extremely well. I have seen him postoperatively with normal vital signs. I discussed the plan of care with the patient's and nursing staff at bedside. MD JUANIS Martin/MODL /[id number]
[2020-04-11] MEDS: SODIUM CHLORIDE 0.9% 250ML IRRIG IR SCH ×6 (02:57→22:06)
[2020-04-11] MEDS: DEXTROSE 5%/0.9% SOD CHL 1,000 ML IV SCH (03:06)
[2020-04-11 05:53] LABS: BASOPHILS % 0.1 % (0.0-1.0); HEMATOCRIT 27.9 % (38.2-49.6); LYMPHOCYTES # (AUTO) 0.7 (1.0-3.2); LYMPHOCYTES % 5.7 % (18.0-39.1); MEAN CORPUSCULAR HEMOGLOBIN 21.8 pg (28-32); MEAN CORPUSCULAR HGB CONC 28.7 g/dL (31-35); MONOCYTES # (AUTO) 0.9 (0.2-0.8); NEUTROPHILS # (AUTO) 9.7 (2.1-6.9); NEUTROPHILS % 85.8 % (38.7-80.0); PLATELET COUNT 224 x10e3/uL (140-360); RED BLOOD COUNT 3.67 x10e6/uL (4.3-5.7); RED CELL DISTRIBUTION WIDTH 25.8 % (11.7-14.4)
[2020-04-11 06:04] LABS: ANION GAP 11.6 mmol/L (8-16); BLOOD UREA NITROGEN 9 mg/dL (7-26); BUN/CREATININE RATIO 9 (6-25); CALCIUM 8.1 mg/dL (8.4-10.2); CARBON DIOXIDE 21 mmol/L (22-29); CHLORIDE 110 mmol/L (98-107); CREATININE, SERUM 1.01 mg/dL (0.72-1.25); EST GLOMERULAR FILTRATION RATE > 60 ML/MIN (60-); GLUCOSE 159 mg/dL (74-118); POTASSIUM 4.6 mmol/L (3.5-5.1); SODIUM 138 mmol/L (136-145)
[2020-04-11] MEDS: PANTOPRAZOLE 40 MG 10ML VIAL IV SCH (08:03)
[2020-04-11] MEDS ORDERED: SODIUM FERRIC GLUCONATE COMPLX 125 MG in SODIUM CHLORIDE 0.9% 100 ML 100 ML IV SCH (09:00)
[2020-04-11 09:36] LABS: HYPOCHROMASIA MODERATE; PLATELET ESTIMATE ADEQUATE; PLATELET MORPHOLOGY COMMENT NORMAL; RBC MORPHOLOGY COMMENT ABNORMAL
[2020-04-11 09:37] LABS: MICROCYTOSIS SLIGHT
[2020-04-11 09:38] LABS: OVALOCYTES FEW
[2020-04-11] MEDS ORDERED: THIAMINE HCL IV SCH ×2 (12:00→12:30)
[2020-04-11] MEDS ORDERED: [UNRECOGNIZED DRUG - OTHER] IV SCH ×2 (12:00→12:30)
[2020-04-11] MEDS ORDERED: FOLIC ACID IV SCH ×2 (12:00→12:30)
[2020-04-11] MEDS ORDERED: MULTIVITAMINS IV SCH ×2 (12:00→12:30)
[2020-04-11] MEDS ORDERED: DEXTROSE 5%/0.45% SOD CHL 1,000 ML IV SCH (12:30)
--- NOTE | 2020-04-11 13:59 | NUR ---
patient oob to chair. tolerated well. linens changed.
[2020-04-11] MEDS: CEFTRIAXONE SOD 1 GM/NS 50 ML 50 ML IV SCH (15:01)
--- NOTE | 2020-04-11 15:19 | NUR ---
Nutrition Intervention Note RD Recommendation(s) for Physician: -Recommend advancing to GI soft diet when medically appropriate -If diet is unable to be advanced, consider alternative means of nutrition and consult RD Plan of Care: RD following, monitoring for tolerance and adequacy Nutrition reason for involvement: NPO/Clear liquid diet expected to be > [address] Assessment (04/11/20) Chart reviewed. Labs and meds reviewed. Pt is a 74 year old male admitted with GI bleed. EGD showed a cecal mass per MD note. Pt had an exploratory laparotomy with right hemicolectomy and omentectomy yesterday. Pt has been on NPO/clear liquid diet for 4 days. Pt stated he was eating well prior to admission. Pt was unsure of any weight changes and stated he usually weighs 225 lbs. No N/V reported, but pt mentioned he is experiencing abdominal pain. Will continue to monitor. Principal Problems/Diagnoses: GI bleed PMH: BPH, iron deficiency anemia, chronic alcohol usage I/O: 1200/900 IV fluids: dextrose/NaCl @ 100 mL/hr, thiamine/folic acid/MV/dextrose/NaCl @ 100 mL/hr GI: soft, non-tender abdomen, last recorded BM 04/09, NGT Skin: no pressure ulcer or wounds Labs: (04/11) Na 138, Cl 110, BUN 9, Cr 1.01, Glu 159, Ca 8.1 Meds: NaCl, protonix, dilaudid, IV iron, ceftriaxone, zofran, hydralazine Ht: 72 in Wt:225 lb BMI: 34.2 kg/m2 IBW:178 lb Malnutrition Evaluation (04/11/20) The patient does not meet criteria for a specified degree of malnutrition at this time. Will re-evaluate at follow-up as appropriate. Nutrition Prescription (Diet Order): NPO Estimated Nutritional Needs: 5781-9800 calories/day (22-25 kcal/kg IBW) 121-162 g protein/day (1.5-2 g pro/kg IBW) Diet Adequacy: Not meeting calorie needs, Not meeting protein needs Tolerance: Tolerance pending Diet Education Needs Assessment:. Diet education not indicated, patient on temporary/transition diet. Nutrition Care Level: moderate Nutrition Diagnosis: Inadequate energy intake related to decreased ability to consume sufficient energy as evidenced by insufficient energy intake from diet compared to needs (NPO x 4 days) Goal: Patient will meet 75-100% of estimated needs by follow up Progress: N/A Interventions: -fiber- modified diet Monitoring/Evaluation: -Total energy intake, Total protein intake, Modified diet, Weight change Signed: Karlee Estrella RD, LD
[2020-04-11] MEDS ORDERED: FOLIC ACID IV PRN (15:45)
[2020-04-11] MEDS ORDERED: [UNRECOGNIZED DRUG - OTHER] IV PRN (15:45)
[2020-04-11] MEDS ORDERED: THIAMINE HCL IV PRN (15:45)
[2020-04-11] MEDS ORDERED: MULTIVITAMINS IV PRN (15:45)
--- NOTE | 2020-04-11 16:10 | Progress Note ---
DATE: 04/11/2020 Medicine Progress Note SUBJECTIVE: The patient is doing well today with no complaints. He is sitting in the chair with an NG tube. He is still n.p.o. He is ambulating with no issues. PHYSICAL EXAMINATION: VITAL SIGNS: Temperature 98.1, pulse 81, respiratory rate is 20, blood pressure 146/78, and pulse ox 96% on room air. GENERAL: Not in acute distress. Alert and oriented x3. Cooperative on examination. HEENT: Head; normocephalic, atraumatic. Eyes; pupils are equal, round, and reactive to light bilaterally. PULMONARY: Clear to auscultation bilaterally. No wheezing, no rales, no rhonchi, no crackles appreciated. CARDIOVASCULAR: Positive S1 and S2. No murmurs, rubs, or gallops appreciated. ABDOMEN: Soft, nondistended, and nontender to palpation. Bowel sounds present. MUSCULOSKELETAL: Strength is 5/5 throughout. No evidence of any muscle deficits on examination. No weakness appreciated. SKIN: Intact. Warm to touch. Good cap refill. PSYCHIATRIC: Normal affect and mood. EXTREMITIES: No edema. Good range of motion throughout. LABORATORY FINDINGS: Show white count 11.3, hemoglobin 8, hematocrit 27, and platelets of 224. Chemistry; sodium 138, potassium 4.6, chloride 110, bicarb 21, anion gap of 11, BUN is 9, creatinine is 1.01, and calcium 8.1. IMAGING: None. IMPRESSION: 1. Generalized weakness with fatigue secondary to iron deficiency anemia, now status post laparoscopic right hemicolectomy performed by General Surgery on 04/10/2020-continue postop care and NG tube, n.p.o., IV fluids, and pain control. 2. Right bundle-branch blocks-evaluated by Cardiology. No further workup needed. 3. Acute kidney injury-resolved. 4. Pulmonary nodules seen on CT IV contrast. CT chest with IV contrast. Needs outpatient followup with close evaluation. Oncology was consulted. We will follow up closely. 5. History of Benign prostatic hyperplasia-continue with tamsulosin. 6. Nutrition-n.p.o., NG tube. 7. Lovenox for deep venous thrombosis prophylaxis. 8. Consultants; GI, Cardiology, Oncology, and General Surgery. PLAN: At this time, the patient is doing very well. I have seen him sitting at the edge of the bed. He is doing otherwise well. He is not ready for a diet. We will defer to General Surgery. Otherwise, we will continue same plan of care and monitor very closely. MD JUANIS Martin/MELODY /[id number]
--- NOTE | 2020-04-11 19:15 | NUR ---
BEDSIDE SHIFT REPORT RECEIVED FROM DAY RN. N/G TO LIS. N/G DRAINING GREEN LIQUID. TELE ON. PT ORIENTED TO PERSON- CONFUSED AT TIMES. BOWEL SOUNDS HYPOACTIVE. ABDOMINAL BINDER ON. ABDOMINAL DRESSING DRY AND INTACT. BRUNO TO GRAVITY DRAINING CLEAR [place] URINE. 20 G PIV IN RT AC- SITE HEALTHY. PT RESTING IN SEMI-FOWLERS POSITION WATCHING BASEBALL GAME ON TV. CALLED TO DISCUSS CONFUSION RELATED TO ANESTHESIA. WILL MONITOR.BED ALARM ON. CALL LIGHT WITHIN REACH. BED LOCKED AND IN LOW POSITION.
[2020-04-11] MEDS: IRON SUCROSE 100 MG in SODIUM CHLORIDE 0.9% 100 ML 100 ML IV SCH (21:16)
[2020-04-11] MEDS: HEPARIN SOD (PORCINE) 5,000 UNIT/ML VIAL SC SCH (22:12)
[2020-04-12] VITALS (8 sets, daily range): BP systolic 108–158; BP diastolic 66–81
[2020-04-12] MEDS: SODIUM CHLORIDE 0.9% 250ML IRRIG IR SCH ×2 (00:53→06:00)
[2020-04-12] MEDS: HYDROMORPHONE 1MG/1ML INJ IV PRN (01:07)
[2020-04-12] MEDS ORDERED: DEXTROSE 5%/0.45% SOD CHL 1,000 ML IV PRN (02:00)
--- NOTE | 2020-04-12 04:00 | NUR ---
PT CRAWLING OUT OF BED. hE WANTS TO SIT IN CHAIR. NURSE HAVING TO REORIENT PT TO PLACE. PT STOOD THEN WRAPPED HIMSELF WITH IV,N/G TUBE AND BRUNO. PT PULLED OUT N/G TUBE THEN PULLED OUT IV. HE ATTEMPTED TO PULL OUT IV.DR LERMA NOTIFIED. HALDOL ORDERED BUT UNABLE TO GIVE TO PT. STUDIO CONTROL OPERATOR NOTIFIED.OTHER STAFF IN ROOM TRYING TO GET PT TO CALM DOWN AND NOT WALK AROUND ON UNIT WITHOUT CLOTHES.
[2020-04-12] MEDS ORDERED: HALOPERIDOL LACTATE 5 MG/ML VIAL IM ONE (04:23)
[2020-04-12 05:49] LABS: BASOPHILS % 0.2 % (0.0-1.0); HEMATOCRIT 28.7 % (38.2-49.6); HEMOGLOBIN 8.1 g/dL (14.0-18.0); LYMPHOCYTES # (AUTO) 1.3 (1.0-3.2); LYMPHOCYTES % 10.5 % (18.0-39.1); MEAN CORPUSCULAR HEMOGLOBIN 21.3 pg (28-32); MEAN CORPUSCULAR HGB CONC 28.2 g/dL (31-35); MEAN CORPUSCULAR VOLUME 75.5 fL (81-99); MONOCYTES # (AUTO) 1.2 (0.2-0.8); MONOCYTES % 9.6 % (4.4-11.3); NEUTROPHILS # (AUTO) 9.4 (2.1-6.9); NEUTROPHILS % 78.9 % (38.7-80.0); PLATELET COUNT 288 x10e3/uL (140-360); RED CELL DISTRIBUTION WIDTH 26.7 % (11.7-14.4)
[2020-04-12 06:45] LABS: ANION GAP 12.9 mmol/L (8-16); BLOOD UREA NITROGEN 8 mg/dL (7-26); BUN/CREATININE RATIO 7 (6-25); CALCIUM 8.7 mg/dL (8.4-10.2); CARBON DIOXIDE 23 mmol/L (22-29); CHLORIDE 111 mmol/L (98-107); CREATININE, SERUM 1.16 mg/dL (0.72-1.25); EST GLOMERULAR FILTRATION RATE > 60 ML/MIN (60-); GLUCOSE 103 mg/dL (74-118); POTASSIUM 3.9 mmol/L (3.5-5.1); SODIUM 143 mmol/L (136-145)
--- NOTE | 2020-04-12 07:23 | NUR ---
had long talk with patient. he is calm at the moment and seems oriented for the most part. will continue to communicate with him and keep him calm.
[2020-04-12] MEDS: PANTOPRAZOLE 40 MG 10ML VIAL IV SCH (08:54)
[2020-04-12] MEDS: HEPARIN SOD (PORCINE) 5,000 UNIT/ML VIAL SC SCH ×2 (08:58→21:00)
--- NOTE | 2020-04-12 09:50 | NUR ---
RECEIVED REPORT FROM SISI PRESCOTT RN.
[2020-04-12] MEDS ORDERED: MORPHINE SULFATE 2 MG/ML SYR 1ML IV PRN (13:00)
[2020-04-12] MEDS ORDERED: ACETAMINOPHEN 1000 MG/100 ML IV PRN (14:15)
[2020-04-12] MEDS: CEFTRIAXONE SOD 1 GM/NS 50 ML 50 ML IV SCH (14:19)
--- NOTE | 2020-04-12 17:59 | Progress Note ---
DATE: 04/12/2020 Medicine Progress Note. SUBJECTIVE: The patient last night was altered secondary to pain medications. He improved after given Haldol. I evaluated the patient at bedside. He is alert, awake, and oriented with no issues. He reports to me that the pain medication usually make him very confused. PHYSICAL EXAMINATION: VITAL SIGNS: Temperature 98.3, pulse 77, respiratory rate 20, blood pressure 119/66, pulse ox 99% on room air. GENERAL: No acute distress. Alert and oriented x3. Cooperative on examination. PULMONARY: Clear to auscultation bilaterally. No wheezing, no rales, no rhonchi, no crackles appreciated. CARDIOVASCULAR: Positive S1 and S2. No murmurs, rubs, or gallops appreciated. ABDOMEN: Soft, nondistended, and nontender to palpation. Bowel sounds present. MUSCULOSKELETAL: Strength is 5/5 throughout. No evidence of any muscle deficits on examination. NEUROLOGIC: Cranial nerves II through XII grossly intact. No evidence of any neurological deficits on exam. SKIN: Intact. Warm to touch. Good cap refill. PSYCHIATRIC: Normal affect and mood. EXTREMITIES: No edema. Good range of motion throughout. LABORATORY FINDINGS: Show white count was 11.9, hemoglobin 8.1, hematocrit 28, MCV is 75, platelets of 288. Chemistry, sodium 143, potassium 3.9, chloride 111, bicarb 23, anion gap of 12, BUN is 8, creatinine is 1.1, and glucose is 8.7. IMAGING STUDIES: Nothing new. IMPRESSION: 1. Generalized weakness with underlying iron deficiency anemia, now status post laparoscopic right hemicolectomy performed by General Surgery on 04/10/2020-continue with postop care, stop pain control, instead use IV Tylenol as the patient gets confused with pain control, NG tube removed. He is now on ice chips per General Surgery. 2. Right bundle branch block-evaluated by Cardiology. No further workup needed. 3. Acute kidney injury-resolved. 4. Pulmonary nodules noted on CT with IV contrast. Needs outpatient followup and he will follow up with Oncology as well. 5. History of benign prostatic hyperplasia, continue with tamsulosin. 6. Nutrition-n.p.o., ice chips only per General Surgery. 7. Lovenox for DVT prophylaxis. CONSULTANTS: GI, Cardiology, Oncology, General Surgery. PLAN: The patient will likely be here several more days. Hopefully, the oncologist will come and speak to the family at bedside to discuss overall plan of care. He is improving. Initiation of diet per General Surgery. MD JUANIS Martin/MELODY /[id number]
[2020-04-12] MEDS ORDERED: ACETAMINOPHEN 1000 MG/100 ML IV SCH (18:00)
--- NOTE | 2020-04-12 19:25 | NUR ---
REPORT RECEIVED FROM DAY RN. PT ALERT AND ORIENTED X3. PT COOPERATIVE WITH CARE. RESPIRATIONS ARE EVEN AND UNLABORED. PT RESTING IN CHAIR IN ROOM WATCHING GOLF ON TV. PT DENIES PAIN. 20 G SL IN LEFT AC. VOIDING PER BATHROOM WITHOUT DIFFICULTY. CALL LIGHT WITHIN REACH. BED IN LOW POSITION. ABDOMINAL DRESSING DRY AND INTACT.
[2020-04-12] MEDS: IRON SUCROSE 100 MG in SODIUM CHLORIDE 0.9% 100 ML 100 ML IV SCH (20:28)
[2020-04-13] VITALS (7 sets, daily range): BP systolic 110–159; BP diastolic 66–88
[2020-04-13 05:04] LABS: BASOPHILS % 0.3 % (0.0-1.0); EOSINOPHILS # (AUTO) 0.1 (0.0-0.4); HEMATOCRIT 28.2 % (38.2-49.6); HEMOGLOBIN 8.1 g/dL (14.0-18.0); LYMPHOCYTES # (AUTO) 1.1 (1.0-3.2); LYMPHOCYTES % 15.6 % (18.0-39.1); MEAN CORPUSCULAR HGB CONC 28.7 g/dL (31-35); MEAN CORPUSCULAR VOLUME 76.4 fL (81-99); MONOCYTES # (AUTO) 0.8 (0.2-0.8); MONOCYTES % 11.3 % (4.4-11.3); NEUTROPHILS # (AUTO) 5.2 (2.1-6.9); NEUTROPHILS % 71.3 % (38.7-80.0); PLATELET COUNT 250 x10e3/uL (140-360); RED BLOOD COUNT 3.69 x10e6/uL (4.3-5.7); RED CELL DISTRIBUTION WIDTH 27.1 % (11.7-14.4)
[2020-04-13 05:29] LABS: ANION GAP 13.7 mmol/L (8-16); BLOOD UREA NITROGEN 14 mg/dL (7-26); BUN/CREATININE RATIO 14 (6-25); CALCIUM 8.8 mg/dL (8.4-10.2); CARBON DIOXIDE 22 mmol/L (22-29); CHLORIDE 111 mmol/L (98-107); CREATININE, SERUM 0.98 mg/dL (0.72-1.25); EST GLOMERULAR FILTRATION RATE > 60 ML/MIN (60-); GLUCOSE 84 mg/dL (74-118); POTASSIUM 3.7 mmol/L (3.5-5.1); SODIUM 143 mmol/L (136-145)
[2020-04-13] MEDS: HEPARIN SOD (PORCINE) 5,000 UNIT/ML VIAL SC SCH ×2 (09:00→20:50)
[2020-04-13] MEDS: PANTOPRAZOLE 40 MG 10ML VIAL IV SCH (09:33)
[2020-04-13 12:54] LABS: HYPOCHROMASIA MODERATE; MICROCYTOSIS SLIGHT
[2020-04-13 12:55] LABS: OVALOCYTES FEW; PLATELET ESTIMATE ADEQUATE; PLATELET MORPHOLOGY COMMENT NORMAL; RBC MORPHOLOGY COMMENT ABNORMAL; TARGET CELLS FEW
[2020-04-13 12:56] LABS: ANISOCYTOSIS MODERATE; POLYCHROMASIA FEW
--- NOTE | 2020-04-13 13:25 | NUR ---
Pt unavailable at this time. Will follow up as able. LIANNE LUGO [employer] Spiritual Care Department O: [phone]
[2020-04-13] MEDS ORDERED: SODIUM CHLORIDE 0.9% 250ML 250 ML ONE (14:57)
[2020-04-13] MEDS: CEFTRIAXONE SOD 1 GM/NS 50 ML 50 ML IV SCH (15:30)
[2020-04-13] MEDS: IRON SUCROSE 100 MG in SODIUM CHLORIDE 0.9% 100 ML 100 ML IV SCH (20:50)
[2020-04-14] VITALS: BP 148/79
--- NOTE | 2020-04-14 00:17 | Progress Note ---
DATE: 04/13/2020 SUBJECTIVE: The patient is doing much better today, he is sitting on the edge of the bed. He is still was n.p.o. when I evaluated him. Diet will be per General Surgery. OBJECTIVE: VITAL SIGNS: He is afebrile, normotensive. Respiratory rate is good. GENERAL: In no acute distress, alert and oriented x3. Cooperative on examination. HEENT: Head is normocephalic and atraumatic. Eyes; pupils are equal, round, and reactive to light bilaterally. Extraocular muscles are intact bilaterally. NECK: Supple, good range of motion throughout. No evidence of erythema or exudate in the posterior pharynx. Has poor dentition. PULMONARY: Clear to auscultation bilaterally. No wheezing, rales, or rhonchi. No crackles appreciated. CARDIOVASCULAR: Positive S1 and S2. No murmurs, rubs, or gallops appreciated. GI: Abdomen is soft, nondistended, and nontender to palpation. Bowel sounds present. MUSCULOSKELETAL: Strength is 5/5 throughout. No evidence of any muscle deficits on examination. NEUROLOGIC: Cranial nerves 2 through 12 grossly intact. No evidence of any neurological deficits on exam. SKIN: Intact. Warm to touch. Good capillary refill. PSYCHIATRIC: Normal affect and mood. EXTREMITIES: No edema. Good range of motion throughout. LABORATORY DATA: Labs show CBC stable. Hemoglobin is 8.1. Chemistry reviewed, stable. IMPRESSION: 1. Generalized weakness with underlying iron deficiency anemia, now status post laparoscopic right hemicolectomy performed by General Surgery on 04/10/2020 - continue with postop care, now he is on clear liquid diet. Use IV Tylenol for pain. He gets very confused on IV pain control. Continue to follow General Surgery recommendation. 2. Right bundle branch block - evaluated by Cardiology. No further workup needed. 3. Acute kidney injury - resolved. 4. Pulmonary nodules noted on CT with IV contrast - needs outpatient followup with Oncology once he get his PET scan. 5. History of BPH - continue tamsulosin. 6. Nutrition. He is on clear liquid diet. 7. Lovenox for DVT prophylaxis. CONSULTANTS: GI, Cardiology, Oncology, and General Surgery. PLAN: He is on a clear liquid diet. Once the diet is advanced, he will be good to go once General Surgery is comfortable. MD JUANIS Martin/MELODY /[id number]
--- NOTE | 2020-04-14 00:22 | NUR ---
SPOKE WITH MD LERMA CONCERNING PT'S ORDER FOR TELEMETRY BUT NO TELEMETRY BOX ON PATIENT. IF PATIENT DOESN'T WANT TO WEAR THE TELEMETRY OK TO DISCONTINUE.
[2020-04-14 04:00] VITALS: BP 140/77
[2020-04-14 05:27] LABS: BASOPHILS % 0.3 % (0.0-1.0); EOSINOPHILS # (AUTO) 0.2 (0.0-0.4); EOSINOPHILS % 2.9 % (0.0-6.0); HEMATOCRIT 28.1 % (38.2-49.6); LYMPHOCYTES % 15.6 % (18.0-39.1); MEAN CORPUSCULAR HEMOGLOBIN 21.6 pg (28-32); MEAN CORPUSCULAR HGB CONC 28.5 g/dL (31-35); MEAN CORPUSCULAR VOLUME 75.9 fL (81-99); MONOCYTES # (AUTO) 0.7 (0.2-0.8); MONOCYTES % 10.7 % (4.4-11.3); NEUTROPHILS # (AUTO) 4.6 (2.1-6.9); NEUTROPHILS % 69.7 % (38.7-80.0); PLATELET COUNT 241 x10e3/uL (140-360); RED CELL DISTRIBUTION WIDTH 27.3 % (11.7-14.4)
[2020-04-14 05:38] LABS: ANION GAP 13.8 mmol/L (8-16); BLOOD UREA NITROGEN 16 mg/dL (7-26); BUN/CREATININE RATIO 18 (6-25); CALCIUM 8.6 mg/dL (8.4-10.2); CARBON DIOXIDE 22 mmol/L (22-29); CHLORIDE 110 mmol/L (98-107); CREATININE, SERUM 0.91 mg/dL (0.72-1.25); EST GLOMERULAR FILTRATION RATE > 60 ML/MIN (60-); GLUCOSE 89 mg/dL (74-118); POTASSIUM 3.8 mmol/L (3.5-5.1); SODIUM 142 mmol/L (136-145)
--- NOTE | 2020-04-14 07:15 | NUR ---
The received sitting in bedside chair and denies issues or concerns at this time. He reports that he is ready to go home.
[2020-04-14 07:48] VITALS: BP 124/84
[2020-04-14] MEDS: PANTOPRAZOLE 40 MG 10ML VIAL IV SCH (09:07)
[2020-04-14] MEDS: HEPARIN SOD (PORCINE) 5,000 UNIT/ML VIAL SC SCH ×2 (09:16→20:15)
[2020-04-14 11:18] LABS: ANISOCYTOSIS MODERATE; HYPOCHROMASIA MODERATE; PLATELET ESTIMATE ADEQUATE; PLATELET MORPHOLOGY COMMENT FEW EDTA CLUMPING; RBC MORPHOLOGY COMMENT ABNORMAL
[2020-04-14 11:19] LABS: OVALOCYTES FEW
[2020-04-14 11:20] LABS: POIKILOCYTOSIS SLIGHT; POLYCHROMASIA FEW
[2020-04-14 11:49] VITALS: BP 139/78
[2020-04-14] MEDS: CEFTRIAXONE SOD 1 GM/NS 50 ML 50 ML IV SCH (15:00)
[2020-04-14 15:47] VITALS: BP 127/76
--- NOTE | 2020-04-14 19:03 | NUR ---
Report to the oncoming nurse.
[2020-04-14 20:00] VITALS: BP 138/66
[2020-04-14] MEDS: IRON SUCROSE 100 MG in SODIUM CHLORIDE 0.9% 100 ML 100 ML IV SCH (20:15)
[2020-04-15] VITALS: BP 155/84
--- NOTE | 2020-04-15 01:59 | Progress Note ---
DATE: 04/14/2020 Medicine Progress Note SUBJECTIVE: The patient was seen early this morning at approximately 9:30 a.m. The patient is currently doing well. He was sitting at the edge of the bed in a chair and he was eating his breakfast. He was still on a clear liquid diet during my evaluation. Oncology was notified to come talk with the patient. PHYSICAL EXAMINATION: VITAL SIGNS: Temperature is 97.7, pulse is 69, respiratory rate is 18, blood pressure 138/66, and pulse ox is 98% on room air. GENERAL: Not in acute distress. Alert and oriented x3. Cooperative on examination. HEENT: Head; normocephalic, atraumatic. Eyes; pupils are equal, round, and reactive to light bilaterally. Extraocular movements intact bilaterally. Throat; no evidence of erythema or exudates in the posterior pharynx. Has poor dentition. NECK: Supple. Good range of motion. PULMONARY: Clear to auscultation bilaterally. No wheezing, no rales, no rhonchi, no crackles appreciated. CARDIOVASCULAR: Positive S1 and S2. No murmurs, rubs, or gallops appreciated. ABDOMEN: Soft, nondistended, and nontender to palpation. Bowel sounds present. MUSCULOSKELETAL: Strength is 5/5 throughout. No evidence of any muscle deficits on examination. No weakness appreciated. NEUROLOGIC: Cranial nerve II through XII grossly intact. No evidence of any neurological deficits on exam. SKIN: Intact. Warm to touch. Good cap refill. PSYCHIATRIC: Normal affect and mood. EXTREMITIES: No edema. Good range of motion throughout. LABORATORY FINDINGS: Show white count 6.5, hemoglobin 8, hematocrit is 28, platelets of 241. Chemistry reviewed, sodium 140, potassium 3.8, chloride 110, bicarb 22, anion gap of 13, BUN 16, creatinine 0.91. IMPRESSION: 1. Generalized weakness secondary to iron deficiency anemia, status post laparoscopic right hemicolectomy performed by General Surgery on 04/10/2020-she is now on a regular diet. Continue with IV Tylenol for pain control. Once the patient has been cleared by General Surgery, he will be discharged home. Oncology came and spoke with the patient today. The patient is to follow up with Oncology as an outpatient. 2. Right bundle branch block-evaluated by Cardiology, no further workup needed. 3. Acute kidney injury-resolved. 4. Pulmonary nodules noted on CT with IV contrast-needs outpatient followup with Oncology. Also, be beneficial with a PET scan as an outpatient. 5. History of benign prostatic hypertrophy-continue tamsulosin. 6. Nutrition-on a regular diet. 7. Lovenox for deep vein thrombosis prophylaxis. CONSULTANTS: 1. GI. 2. Cardiology. 3. Oncology. 4. General Surgery. PLAN: If he tolerates his regular diet, he could potentially be discharged tomorrow. MD JUANIS Martin/MODL /[id number]
[2020-04-15 04:00] VITALS: BP 150/77
[2020-04-15 05:29] LABS: HEMATOCRIT 27.4 % (38.2-49.6)
[2020-04-15 05:54] LABS: ANION GAP 13.6 mmol/L (8-16); BLOOD UREA NITROGEN 14 mg/dL (7-26); BUN/CREATININE RATIO 16 (6-25); CALCIUM 8.5 mg/dL (8.4-10.2); CARBON DIOXIDE 21 mmol/L (22-29); CHLORIDE 112 mmol/L (98-107); CREATININE, SERUM 0.89 mg/dL (0.72-1.25); EST GLOMERULAR FILTRATION RATE > 60 ML/MIN (60-); GLUCOSE 84 mg/dL (74-118); POTASSIUM 3.6 mmol/L (3.5-5.1); SODIUM 143 mmol/L (136-145)
--- NOTE | 2020-04-15 07:12 | NUR ---
REPORT GIVEN TO DAYSILFT NURSE. AAOX3. NO SIGNS OF IV INFILTRATION. BED LOCKED AND IN LOW POSITION. CALL LIGHT WITHIN REACH.
[2020-04-15 07:59] VITALS: BP 137/73
[2020-04-15] MEDS: PANTOPRAZOLE 40 MG 10ML VIAL IV SCH (08:37)
[2020-04-15] MEDS: HEPARIN SOD (PORCINE) 5,000 UNIT/ML VIAL SC SCH (08:47)
[2020-04-15 09:47] VITALS: BP 137/73
[2020-04-15 11:59] VITALS: BP 109/71
--- NOTE | 2020-04-15 13:40 | NUR ---
patient discharged. IV access removed, bleeding controlled and dressing applied. discharge instructions reviewed with patient and his . both aware of follow up appts needed. denied questions regarding prescription. patient ambulated off unit with all belongings to 's personal vehicle in stable condition.
--- NOTE | 2020-04-16 02:51 | Discharge Summary ---
FINAL DISCHARGE DIAGNOSES: 1. Adenocarcinoma of the colon, status post laparoscopic right hemicolectomy, performed by General Surgery on 04/10/2020. 2. Iron deficiency anemia secondary to underlying malignancy. 3. Right bundle-branch block. 4. Acute kidney injury. 5. Pulmonary nodules-needs outpatient followup. 6. History of benign prostatic hypertrophy. CONSULTANTS: General Surgery, GI, Cardiology, and oncology. VITAL SIGNS: Temperature is 97.9, pulse 76, respiratory rate is 18, blood pressure 109/71, pulse ox 98% on room air. LABORATORY FINDINGS: Show white count 6.5, hemoglobin 8, hematocrit is 27, and platelets of 241. Chemistry; sodium 143, potassium 3.6, chloride 112, bicarb 29, anion gap of 13, BUN is 14, creatinine is 0.89, calcium is 8.5, iron saturation is 5%, ferritin is 8.5. LFTs within normal range. Albumin was 3.8. Troponins were all negative. Vitamin B12 of 534. Serology; coronavirus PCR was found to be nondetectable. PT 13, INR 0.96, PTT 26. MICROBIOLOGY: None. IMAGING STUDIES: Chest x-ray, no acute cardiopulmonary abnormalities. CT abdomen and pelvis shows a cecal soft tissue prominence, may correspond with provided history of cecal mass. Right and left lower lobe lung nodules measuring [address] chest was ordered. Left lower lobe scattered ground-glass opacity, most likely infectious or inflammatory. Chest CT shows scattered pulmonary nodules within the lungs, enlargement of 7 mm in the right lower and left lower lobe. He has scattered ground-glass opacity in the right upper and lower lobes secondary to infectious or inflammatory process. HOSPITAL COURSE: This is a 74-year-old male, who came in as a direct admission due to underlying anemia, needing blood transfusion. GI was consulted. The patient underwent colonoscopy, found to have a cecal mass prompting further evaluation and management and Oncology and General Surgery consultation. The patient required blood transfusion while he was here in the hospital stay. He was found to be iron deficient as well. The patient underwent status post laparoscopic right hemicolectomy, performed by General Surgery on 04/10/2020. Postprocedure, the patient was doing well with no complaints. He was started on a clear liquid diet, advanced to regular, which he tolerated well. Hemoglobin maintained stable. Cardiology was consulted for right bundle-branch block and he was cleared for surgery. No further workup needed by Cardiology. Oncology came and evaluated the patient. Pathology consistent with adenocarcinoma of the colon. He needs close followup as an outpatient with the oncologist in the next 1 week for further management and care. He was found to have acute kidney injury, which all resolved, all secondary to anemia. He does have pulmonary nodules, which he will follow up with Oncology as an outpatient with a PET scan. Otherwise, the patient was tolerating diet well with no issues. He was ambulating with no issues and pain was well controlled. He has been cleared for discharge by GI, Cardiology, Oncology, and General Surgery. On the day of discharge, vital signs were stable, labs reviewed and stable. The patient was seen and evaluated, examined thoroughly on the day of discharge with no other complaints. The patient verbalized understanding and agrees to plan of care to follow up as an outpatient with the primary care physician in 1 week, Oncology in 1 to 2 weeks' time, General Surgery in 1 to 2 weeks' time, and GI in about 3 weeks' time. MEDICATIONS: See med reconciliation form. DISPOSITION: Home. CONDITION: Stable. DIET: Heart healthy. In the event of worsening symptoms, the patient was advised to come back to the ED for further evaluation. Discharge summary took greater than 35 minutes. MD JUANIS Martin/MODL /[id number]
== END 2020-04-15 13:30 | disposition home or self-care (01) | DRG 329 ==
LOC: MED/SURG 15:40
PROVIDERS: ADMIT Internal Medicine; ATTEND Internal Medicine
PROC: 30233N1 Transfusion of Nonautologous Red Blood Cells into Peripheral Vein, Percutaneous Approach (ICD-10-PCS; 2020-04-07)
PROC: 0DBH8ZX Excision of Cecum, Via Natural or Artificial Opening Endoscopic, Diagnostic (ICD-10-PCS; 2020-04-08)
PROC: 0DTU0ZZ Resection of Omentum, Open Approach (ICD-10-PCS; 2020-04-10)
PROC: 0DBB0ZZ Excision of Ileum, Open Approach (ICD-10-PCS; 2020-04-10)
PROC: 0KBM0ZZ Excision of Perineum Muscle, Open Approach (ICD-10-PCS; 2020-04-10)
PROC: 0DTF0ZZ Resection of Right Large Intestine, Open Approach (ICD-10-PCS; principal; 2020-04-10 11:44)
DX: C18.0 Malignant neoplasm of cecum (principal); G92 Toxic encephalopathy; N17.9 Acute kidney failure, unspecified; C78.6 Secondary malignant neoplasm of retroperitoneum and peritoneum; I45.10 Unspecified right bundle-branch block; N40.0 Benign prostatic hyperplasia without lower urinary tract symptoms; D50.9 Iron deficiency anemia, unspecified; K21.9 Gastro-esophageal reflux disease without esophagitis; I10 Essential (primary) hypertension; Z96.643 Presence of artificial hip joint, bilateral; Z90.49 Acquired absence of other specified parts of digestive tract; Z82.49 Family history of ischemic heart disease and other diseases of the circulatory system; Z72.89 Other problems related to lifestyle; K57.30 Diverticulosis of large intestine without perforation or abscess without bleeding; K64.8 Other hemorrhoids; R91.8 Other nonspecific abnormal finding of lung field; R41.82 Altered mental status, unspecified; T40.2X5A Adverse effect of other opioids, initial encounter; D63.0 Anemia in neoplastic disease; Y92.230 Patient room in hospital as the place of occurrence of the external cause
CPT/HCPCS: 36415; 45380; 45381; 71045; 71260; 74176; 80048; 80053; 82607; 82728; 82747; 82948; 83540; 83880; 84466; 84484; 85014; 85018; 85025; 85045; 85610; 85730; 86850; 86900; 86920; 87635; 88305; 88307; 88309; 88342; 93005; 93306; J0696; J1100; J1170; J1610; J1630; J1644; J1756; J1940; J2001; J2175; J2405; J3010; J3411; J7030; J7042; J7050; P9016; Q9967

== ENCOUNTER → 2020-05-18 | Day surgery (SDC) | payer MEDICARE, OTHER ==
[~2020-05-18] MED LIST: ALFUZOSIN; BUPIVACAINE 0.25% 30ML SDV INJ ONE; FERROUS SULFAT325 MG PO; FLOMAX0.4 MG PO; HEPARIN SOD (PORCINE) 5,000 UNIT/ML VIAL ONE; MULTI-VITAMIN1 EACH PO; PRILOSEC OTC20 MG PO; SODIUM CHLORIDE 0.9% 500ML 500 ML ONE; folic acid PO; ibuprofen PO
--- NOTE | 2020-05-18 11:31 | Operative Report ---
DATE OF PROCEDURE: 05/18/2020 SURGEON: Linus Fowler MD PREOPERATIVE DIAGNOSIS: Colon cancer, needing IV access for chemotherapy. POSTOPERATIVE DIAGNOSIS: Colon cancer, needing IV access for chemotherapy. OPERATION PERFORMED: Placement of left subclavian venous access port under C-arm guidance. ANESTHESIA: General. COMPLICATIONS: None. ESTIMATED BLOOD LOSS: Minimal. DESCRIPTION OF PROCEDURE: With the patient lying in bed in the Trendelenburg position under good general anesthesia, the left chest and neck were prepped with Betadine solution and draped in the usual manner. A standard left subclavian venipuncture was performed and a guidewire was advanced into central venous position without any difficulty. Using the C-arm, the tip of the guidewire was confirmed to be at the level of the superior vena cava and the left lung was fully expanded. The pocket was then created in the left anterior chest to accept the reservoir and catheter was then threaded to the subclavian position and the catheter was cut to the appropriate length. The reservoir was then anchored to the anterior chest wall with interrupted sutures of 2-0 silk. The reservoir and catheter were fully heparinized. The peel-away sheath introducer was then placed over the guidewire. The guidewire was removed and the catheter was threaded through the peel-away sheath introducer and the peel-away sheath was removed. There was good blood return and the reservoir and catheter were fully heparinized. Using the C-arm, the tip of the catheter was confirmed to be at the level of the superior vena cava and the left lung was fully expanded. The wounds were then closed in layers. The subcutaneous tissue was approximated with 3-0 and 4-0 Vicryl, and the skin was closed with subcuticular 5-0 Vicryl. Benzoin and Steri-Strips were applied. A dressing was placed. Sponge, lap, and needle counts were correct. The patient tolerated the procedure well and returned to the recovery room in stable condition. MD LUIS Jefferson/MODL /[id number]
[2020-05-18 11:40] VITALS: BP 115/81
== END | disposition home or self-care (01) ==
LOC: OR 06:18
PROVIDERS: ATTEND Surgery
DX: C18.9 Malignant neoplasm of colon, unspecified (principal); K21.9 Gastro-esophageal reflux disease without esophagitis; Z90.49 Acquired absence of other specified parts of digestive tract; Z01.812 Encounter for preprocedural laboratory examination; Z11.59 Encounter for screening for other viral diseases
CPT/HCPCS: 36561; 76000; 87635; C1751; J1644; J7040

== ENCOUNTER → 2022-01-07 | Day surgery (SDC) | payer MEDICARE ==
[2022-01-06 11:25] LABS: BASOPHILS % 0.2 % (0.0-1.0); EOSINOPHILS % 0.5 % (0.0-6.0); HEMOGLOBIN 13.4 g/dL (14.0-18.0); LYMPHOCYTES % 29.8 % (18.0-39.1); MEAN CORPUSCULAR HEMOGLOBIN 30.7 pg (28-32); MEAN CORPUSCULAR HGB CONC 32.7 g/dL (31-35); MONOCYTES # (AUTO) 0.6 (0.2-0.8); NEUTROPHILS % 60.2 % (38.7-80.0); PLATELET COUNT 144 x10e3/uL (140-360); RED BLOOD COUNT 4.36 x10e6/uL (4.3-5.7); RED CELL DISTRIBUTION WIDTH 13.3 % (11.7-14.4)
[~2022-01-07] MED LIST changes: +ACETAMINOPHEN325 M1 PO; +ALFUZOSIN HCL10 MG PO; -BUPIVACAINE 0.25% 30ML SDV INJ ONE; +FENTANYL CITRATE/PF 100MCG/2 ML INJ ONE; -HEPARIN SOD (PORCINE) 5,000 UNIT/ML VIAL ONE; +HYOSCYAMINE SULFATE 0.5 MG/ML INJ ONE; +LIDOCAINE HCL 2% LOCAL INJ 5 ML SDV VIAL INJ ONE; +MIDAZOLAM HCL 2 MG/2 ML VIAL ONE; +PROPOFOL IV EMULSION 10 MG/ML 20 ML VIAL ONE; -SODIUM CHLORIDE 0.9% 500ML 500 ML ONE
[2022-01-07 14:53] VITALS: BP 122/66
== END | disposition home or self-care (01) ==
LOC: OR 11:50
PROVIDERS: ATTEND Internal Medicine Gastroenterology
DX: Z12.11 Encounter for screening for malignant neoplasm of colon (principal); Z85.038 Personal history of other malignant neoplasm of large intestine; K63.5 Polyp of colon; K57.30 Diverticulosis of large intestine without perforation or abscess without bleeding; Z98.0 Intestinal bypass and anastomosis status; K21.9 Gastro-esophageal reflux disease without esophagitis; Z71.3 Dietary counseling and surveillance; N40.0 Benign prostatic hyperplasia without lower urinary tract symptoms; F17.220 Nicotine dependence, chewing tobacco, uncomplicated; Z01.810 Encounter for preprocedural cardiovascular examination; Z01.812 Encounter for preprocedural laboratory examination; Z20.822 Contact with and (suspected) exposure to COVID-19; Z79.899 Other long term (current) drug therapy; Z68.33 Body mass index [BMI] 33.0-33.9, adult; Z80.0 Family history of malignant neoplasm of digestive organs
CPT/HCPCS: 36415; 45380; 45385; 85025; 93005; J1980; J2001; J2250; J2704; J3010; U0002; 45378